=== PATIENT | female | born 1985 | race Caucasian/White ===

== ENCOUNTER → 2016-12-08 | Outpatient (CLI) | payer BC ==
[2012-02-01 23:00] VITALS: BP 120/76
[~2016-12-08] MED LIST: CLONAZEPAM0.5 MG; ZOLOFT50 MG
== END ==
LOC: LAB 07:28
DX: Z01.89 Encounter for other specified special examinations (principal)

== ENCOUNTER → 2017-02-09 | Outpatient (CLI) | payer BC ==
[2012-02-01 23:00] VITALS: BP 120/76
== END ==
LOC: LAB 11:23
DX: K21.0 Gastro-esophageal reflux disease with esophagitis (principal)

== ENCOUNTER 2020-10-14 19:59 | Emergency (ER) | payer BC ==
[2020-10-14] MEDS ORDERED: AMOXICILLIN875 MG PO (20:19)
[2020-10-14 20:35] VITALS: BP 105/67
== END 2020-10-14 20:38 | disposition home or self-care (01) ==
LOC: ED 19:59
DX: K08.89 Other specified disorders of teeth and supporting structures (principal); F17.210 Nicotine dependence, cigarettes, uncomplicated; Z79.899 Other long term (current) drug therapy
CPT/HCPCS: J1885

== ENCOUNTER → 2021-01-28 | Outpatient (CLI) | payer BC ==
[~2021-01-28] MED LIST changes: +AMOXICILLIN875 MG PO
== END ==
LOC: RAD 08:35
DX: M25.532 Pain in left wrist (principal)

== ENCOUNTER 2024-02-02 22:48 | Emergency (ER) | payer SELFPAY ==
[~2024-02-02] VITALS: Ht 160 cm; Wt 77.5 kg
[2024-02-02] MEDS ORDERED: Lidocaine 2% Viscous 15 ML UNIT DOSE CUP MM ONE (23:15)
[2024-02-03] MEDS ORDERED: LIDOCAINE HCL100 M2 MM (00:08)
[2024-02-03 00:25] VITALS: BP 126/81
== END 2024-02-03 00:26 | disposition home or self-care (01) ==
LOC: ED 22:48
DX: K04.7 Periapical abscess without sinus (principal); G89.29 Other chronic pain; E66.9 Obesity, unspecified; F17.210 Nicotine dependence, cigarettes, uncomplicated; Z68.30 Body mass index [BMI] 30.0-30.9, adult